=== PATIENT | female | born 1960 | race Caucasian/White ===

== ENCOUNTER 2019-09-19 07:38 | Observation (INO) ==
[2019-09-19] MEDS ORDERED: Nitroglycerin 0.4 MG TAB.SUBL SL PRN (07:49)
[2019-09-19] MEDS ORDERED: Aspirin 81 MG TAB.CHEW PO STA (07:50)
[2019-09-19] MEDS ORDERED: Nitroglycerin 0.4 MG TAB.SUBL SL ONE (07:54)
[2019-09-19 08:12] LABS: Basophils % 0.7 %; Eosinophils # 0.1 K/mcL (0.0-0.6); Eosinophils % 2.3 %; Hematocrit 39.2 % (35.3-44.9); Hemoglobin 13.6 g/dL (11.5-15.4); Immature Granulocytes % 0.3 % (0-4); Lymphocytes # 1.9 K/mcL (0.6-4.6); Lymphocytes % 31.8 %; Mean Corpuscular HGB Conc 34.7 g/dL (31.6-35.5); Mean Corpuscular Hemoglobin 31.5 pg (28.0-33.3); Mean Corpuscular Volume 90.7 fL (83.0-100.0); Mean Platelet Volume 8.9 fL (9.4-12.4); Monocytes # 0.4 K/mcL (0.0-1.3); Monocytes % 7.2 %; Neutrophils # 3.5 K/mcL (1.6-8.9); Platelet Count 299 K/mcL (140-400); Red Blood Count 4.32 M/mcL (3.82-4.97); Red Cell Distribution Width 12.7 % (11.5-14.5); Segmented Neutrophils % 57.7 %
[2019-09-19 08:15] LABS: Prothrombin Time 11.8 Seconds (9.4-12.1)
[2019-09-19 08:33] LABS: Alanine Aminotransferase 14 Units/L (7-52); Albumin 4.2 g/dL (3.5-5.7); Albumin/Globulin Ratio 1.3 (1.1-2.2); Alkaline Phosphatase 59 Units/L (34-104); Aspartate Amino Transferase 18 Units/L (13-39); BUN/Creatinine Ratio 19 (6-26); Bilirubin,Direct 0.1 mg/dL (0.0-0.2); Bilirubin,Indirect 0.4 mg/dL (0.0-1.0); Bilirubin,Total 0.5 mg/dL (0.3-1.0); Blood Urea Nitrogen 13 mg/dL (6-20); Calcium 9.3 mg/dL (8.6-10.3); Carbon Dioxide 24 mEq/L (23-29); Chloride 106 mEq/L (98-107); Globulin 3.2 g/dL (2.4-3.5); Glucose 100 mg/dL (70-105); Lipase 34 Units/L (11-82); Osmolality,Calculated 292 (280-300); Potassium 3.7 mEq/L (3.5-5.1); Sodium 141 mEq/L (136-145); Total Protein 7.4 g/dL (6.4-8.9); Troponin I < 0.03 ng/mL (< 0.04); eGFR For African Americans > 60 (> 60); eGFR For Non-African Americans > 60 (> 60)
[2019-09-19] MEDS ORDERED: Ondansetron ODT 4 MG TAB.RAPDIS SL PRN (09:29)
[2019-09-19 12:10] LABS: Chol/HDL Ratio 5.3 (0-4.9); Cholesterol 247 mg/dL (< 200); HDL Cholesterol 47 mg/dL (40-59); LDL Cholesterol,Calculated 174 mg/dL (0-99); Triglycerides 131 mg/dL (< 150)
[2019-09-19 13:21] LABS: Estimated Average Glucose 123 mg/dl
[2019-09-20] MEDS ORDERED: Aspirin 81 MG TAB.CHEW PO SCH (09:00)
[2019-09-20 11:06] VITALS: BP 122/77
== END 2019-09-20 14:37 | disposition home or self-care (01) ==
LOC: EMEROOARM 07:38 → 3BNU 07:38
PROVIDERS: ADMIT Internal Medicine; ATTEND Internal Medicine